=== PATIENT | female | born 1975 | race Caucasian/White ===

== ENCOUNTER 2018-06-11 10:38 | Inpatient (IN) | payer MEDICAID ==
[~2018-06-11] VITALS: Ht 172.7 cm; Wt 108.3 kg
[2018-06-11] MEDS ORDERED: DULO30CA2 PO (10:50)
[2018-06-11] MEDS ORDERED: GABA-531 PO (10:50)
[2018-06-11] MEDS ORDERED: TOPI100T37 PO (10:50)
[2018-06-11] MEDS ORDERED: HYD50 PO (10:50)
[2018-06-11] MEDS ORDERED: MET750 PO (10:50)
[2018-06-11] MEDS ORDERED: ADV100 IH (10:50)
[2018-06-11] MEDS ORDERED: CLON.5 PO (10:50)
[2018-06-11] MEDS ORDERED: BICT1TAB PO (10:50)
[2018-06-11] MEDS ORDERED: ARIP2 PO (10:50)
[2018-06-11] MEDS ORDERED: PRAZ1 PO (10:50)
[2018-06-11 11:36] LABS: AMPHET/METH SCREEN,URINE NEGATIVE (NEGATIVE); BARBITURATE SCREEN, URINE NEGATIVE (NEGATIVE); BENZODIAZEPINES SCREEN,URINE NEGATIVE (NEGATIVE); CANNABINOID SCREEN,URINE NEGATIVE (NEGATIVE); COCAINE SCREEN,URINE NEGATIVE (NEGATIVE); METHADONE SCREEN, URINE NEGATIVE (NEGATIVE); OPIATE SCREEN,URINE NEGATIVE (NEGATIVE); PHENCYCLIDINE SCREEN,URINE NEGATIVE (NEGATIVE)
[2018-06-11 11:41] LABS: BASOPHILS % (AUTO) 0.5 % (0.0-2.0); EOSINOPHILS % (AUTO) 3.2 % (1.0-6.0); HEMATOCRIT 36.6 % (36-46); HEMOGLOBIN 12.2 g/dL (12.0-16.0); LYMPHOCYTES # (AUTO) 1.1 K/uL (1.0-4.8); LYMPHOCYTES % (AUTO) 30.4 % (22.0-44.0); MEAN CORPUSCULAR HEMOGLOBIN 27.2 pg (26.0-34.0); MEAN CORPUSCULAR HGB CONC 33.2 G/dL (31.0-37.0); MEAN CORPUSCULAR VOLUME 82 fL (80-100); MONOCYTES # (AUTO) 0.3 K/uL (0.1-1.0); MONOCYTES % (AUTO) 9.7 % (2.0-9.0); NEUTROPHILS % (AUTO) 56.2 % (40.0-70.0); PLATELET COUNT (AUTO) 149 K/uL (150-450); RED BLOOD CELL COUNT(AUTO) 4.47 MIL/uL (4.00-5.20); RED CELL DISTRIBUTION WIDTH 14.5 % (11.5-14.5)
[2018-06-11 11:57] LABS: ANION GAP 5 mmol/L (8-16); CALCIUM, TOTAL 8.8 mg/dL (8.8-10.5); CARBON DIOXIDE 27 mmol/L (22-29); CHLORIDE 108 mmol/L (98-107); CREATININE 1.03 mg/dL (0.60-1.30); GLOMERULAR FILTR. RATE CALC 58 mL/min (>60); GLUCOSE,RANDOM 106 mg/dL (70-110); POTASSIUM 4.3 mmol/L (3.5-5.1); SODIUM SERUM 140 mmol/L (136-145); UREA NITROGEN, BLOOD 20 mg/dL (7-18)
[2018-06-11 12:08] LABS: ALANINE AMINOTRANSFERASE 47 U/L (12-78); ALBUMIN 3.8 g/dL (3.4-5.0); ALKALINE PHOSPHATASE 114 U/L (46-116); ASPARTATE AMINOTRANSFERASE 37 U/L (15-37); BILIRUBIN,TOTAL 0.8 mg/dL (0.1-1.0); HCG,QUANTITATIVE 1 mIU/mL (0-6); TOTAL PROTEIN, SERUM 7.6 g/dL (6.4-8.2)
[2018-06-11] MEDS ORDERED: IBUPROFEN 400 MG TABLET PO PRN (13:30)
[2018-06-11] MEDS: LORazepam 2 MG TABLET PO PRN ×2 (18:23→23:45)
[2018-06-11 21:24] VITALS: BP 117/75
[2018-06-11 21:58] VITALS: BP 120/74
[2018-06-11] MEDS: ZOLPIDEM TARTRATE 10 MG TABLET PO PRN (23:45)
[2018-06-12 00:01] VITALS: BP 110/78
[2018-06-12 06:18] LABS: BASOPHILS % (AUTO) 0.5 % (0.0-2.0); EOSINOPHILS % (AUTO) 4.2 % (1.0-6.0); HEMATOCRIT 36.6 % (36-46); HEMOGLOBIN 12.4 g/dL (12.0-16.0); LYMPHOCYTES # (AUTO) 1.4 K/uL (1.0-4.8); LYMPHOCYTES % (AUTO) 38.2 % (22.0-44.0); MEAN CORPUSCULAR HEMOGLOBIN 27.6 pg (26.0-34.0); MEAN CORPUSCULAR HGB CONC 33.7 G/dL (31.0-37.0); MEAN CORPUSCULAR VOLUME 82 fL (80-100); MONOCYTES # (AUTO) 0.4 K/uL (0.1-1.0); MONOCYTES % (AUTO) 11.3 % (2.0-9.0); NEUTROPHILS # (AUTO) 1.7 K/uL (1.8-7.7); NEUTROPHILS % (AUTO) 45.8 % (40.0-70.0); PLATELET COUNT (AUTO) 138 K/uL (150-450); RED BLOOD CELL COUNT(AUTO) 4.48 MIL/uL (4.00-5.20); RED CELL DISTRIBUTION WIDTH 14.8 % (11.5-14.5)
[2018-06-12 06:37] LABS: ALANINE AMINOTRANSFERASE 44 U/L (12-78); ALBUMIN 3.5 g/dL (3.4-5.0); ALKALINE PHOSPHATASE 110 U/L (46-116); ANION GAP 7 mmol/L (8-16); ASPARTATE AMINOTRANSFERASE 32 U/L (15-37); BILIRUBIN,TOTAL 0.8 mg/dL (0.1-1.0); CALCIUM, TOTAL 8.6 mg/dL (8.8-10.5); CARBON DIOXIDE 24 mmol/L (22-29); CHLORIDE 109 mmol/L (98-107); CHOL/HDL RATIO 4.6 (3.9-5.7); CHOLESTEROL 147 mg/dL (131-200); CREATININE 0.96 mg/dL (0.60-1.30); GLOMERULAR FILTR. RATE CALC > 60 mL/min (>60); GLUCOSE,RANDOM 115 mg/dL (70-110); HDL CHOLESTEROL 32 mg/dL (40-60); LDL CHOL (CALC.) 86 mg/dL (0-130); POTASSIUM 3.9 mmol/L (3.5-5.1); SODIUM SERUM 140 mmol/L (136-145); THYROID STIMULATING HORMONE 4.77 uIU/mL (0.36-3.74); TOTAL PROTEIN, SERUM 7.2 g/dL (6.4-8.2); TRIGLYCERIDES 147 mg/dL (15-150); UREA NITROGEN, BLOOD 18 mg/dL (7-18)
[2018-06-12 06:39] LABS: HEMOGLOBIN A1C 5.2 % (4.5-6.2)
[2018-06-12] MEDS: FLUTICASONE/SALMETEROL 100 MCG-50 MCG/INH DISKUS INHALER [28] IH SCH ×2 (08:08→20:57)
[2018-06-12] MEDS: TOPIRAMATE 100 MG TABLET PO SCH ×2 (08:08→17:08)
[2018-06-12] MEDS: GABAPENTIN 300 MG CAPSULE PO SCH ×3 (08:09→17:08)
[2018-06-12 10:15] VITALS: BP 115/71
[2018-06-12] MEDS ORDERED: *PATIENT'S OWN MED [ENTER DRUG, DOSE, FREQUENCY IN COMMENTS] CLINICAL ONE (12:45)
[2018-06-12] MEDS ORDERED: MET500 PO (12:53)
[2018-06-12] MEDS: [UNRECOGNIZED DRUG - OTHER] PO SCH (13:08)
[2018-06-12] MEDS: NAPROXEN 500 MG TABLET PO PRN (13:09)
[2018-06-12 13:10] VITALS: BP 119/75
[2018-06-12] MEDS: METHOCARBAMOL 500 MG TABLET PO PRN (13:10)
[2018-06-12] MEDS: DULoxetine HCL 30 MG CAPSULE PO SCH (13:57)
[2018-06-12] MEDS: ARIPiprazole 2 MG TABLET PO SCH (14:52)
[2018-06-12] MEDS: LORazepam 2 MG TABLET PO PRN ×2 (16:21→20:57)
[2018-06-12 18:44] VITALS: BP 116/69
[2018-06-12] MEDS: ZOLPIDEM TARTRATE 10 MG TABLET PO PRN (20:57)
[2018-06-12] MEDS: PRAZOSIN HCL 1 MG CAPSULE PO SCH (20:57)
[2018-06-13] MEDS: LORazepam 2 MG TABLET PO PRN ×2 (03:01→18:12)
[2018-06-13] MEDS: DULoxetine HCL 30 MG CAPSULE PO SCH (09:27)
[2018-06-13] MEDS: FLUTICASONE/SALMETEROL 100 MCG-50 MCG/INH DISKUS INHALER [28] IH SCH ×2 (09:27→21:45)
[2018-06-13] MEDS: ARIPiprazole 2 MG TABLET PO SCH (09:27)
[2018-06-13] MEDS: TOPIRAMATE 100 MG TABLET PO SCH ×2 (09:27→17:04)
[2018-06-13] MEDS: [UNRECOGNIZED DRUG - OTHER] PO SCH (09:28)
[2018-06-13] MEDS: GABAPENTIN 300 MG CAPSULE PO SCH ×3 (09:28→17:04)
[2018-06-13 09:29] VITALS: BP 120/75
[2018-06-13] MEDS: NAPROXEN 500 MG TABLET PO PRN (09:29)
[2018-06-13 10:13] VITALS: BP 108/54
[2018-06-13] MEDS: OLANZapine 5 MG RAPDIS TABLET PO PRN (13:17)
[2018-06-13 18:18] VITALS: BP 108/63
[2018-06-13] MEDS: PRAZOSIN HCL 1 MG CAPSULE PO SCH (21:45)
[2018-06-13] MEDS: ZOLPIDEM TARTRATE 10 MG TABLET PO PRN (22:17)
[2018-06-14] MEDS: LORazepam 2 MG TABLET PO PRN ×3 (03:28→17:41)
[2018-06-14 03:35] VITALS: BP 104/63
[2018-06-14 08:15] VITALS: BP 121/72
[2018-06-14] MEDS: GABAPENTIN 300 MG CAPSULE PO SCH ×3 (09:11→17:37)
[2018-06-14] MEDS: [UNRECOGNIZED DRUG - OTHER] PO SCH (09:11)
[2018-06-14] MEDS: TOPIRAMATE 100 MG TABLET PO SCH ×2 (09:11→17:37)
[2018-06-14] MEDS: DULoxetine HCL 30 MG CAPSULE PO SCH (09:11)
[2018-06-14 09:12] VITALS: BP 135/83
[2018-06-14] MEDS: FLUTICASONE/SALMETEROL 100 MCG-50 MCG/INH DISKUS INHALER [28] IH SCH ×2 (09:12→20:50)
[2018-06-14] MEDS: NAPROXEN 500 MG TABLET PO PRN (09:12)
[2018-06-14] MEDS: ARIPiprazole 2 MG TABLET PO SCH (09:12)
[2018-06-14 13:33] VITALS: BP 120/80
[2018-06-14] MEDS: OLANZapine 5 MG RAPDIS TABLET PO PRN ×2 (13:33→21:12)
[2018-06-14] MEDS: ACETAMINOPHEN 325 MG TABLET PO PRN (13:35)
[2018-06-14 19:59] VITALS: BP 119/66
[2018-06-14] MEDS: PRAZOSIN HCL 1 MG CAPSULE PO SCH (20:50)
[2018-06-14] MEDS: ZOLPIDEM TARTRATE 10 MG TABLET PO PRN (21:13)
[2018-06-15 03:20] VITALS: BP 102/64
[2018-06-15] MEDS: ACETAMINOPHEN 325 MG TABLET PO PRN (03:25)
[2018-06-15] MEDS: FLUTICASONE/SALMETEROL 100 MCG-50 MCG/INH DISKUS INHALER [28] IH SCH ×2 (09:25→21:02)
[2018-06-15] MEDS: [UNRECOGNIZED DRUG - OTHER] PO SCH (09:25)
[2018-06-15] MEDS: DULoxetine HCL 30 MG CAPSULE PO SCH (09:25)
[2018-06-15] MEDS: GABAPENTIN 300 MG CAPSULE PO SCH ×3 (09:25→16:23)
[2018-06-15] MEDS: ARIPiprazole 2 MG TABLET PO SCH (09:25)
[2018-06-15] MEDS: TOPIRAMATE 100 MG TABLET PO SCH ×2 (09:25→16:26)
[2018-06-15 09:36] VITALS: BP 110/67
[2018-06-15] MEDS: NAPROXEN 500 MG TABLET PO PRN (09:45)
[2018-06-15] MEDS: METHOCARBAMOL 500 MG TABLET PO PRN (11:09)
[2018-06-15] MEDS: LORazepam 2 MG TABLET PO PRN (12:08)
[2018-06-15 16:55] VITALS: BP 138/86
[2018-06-15] MEDS: OLANZapine 5 MG RAPDIS TABLET PO PRN (19:10)
[2018-06-15] MEDS: PRAZOSIN HCL 1 MG CAPSULE PO SCH (21:02)
[2018-06-15] MEDS: ZOLPIDEM TARTRATE 10 MG TABLET PO PRN (21:06)
[2018-06-16 02:42] VITALS: BP 97/60
[2018-06-16] MEDS: OLANZapine 5 MG RAPDIS TABLET PO PRN (02:43)
[2018-06-16] MEDS: NAPROXEN 500 MG TABLET PO PRN ×2 (02:44→18:47)
[2018-06-16 04:50] VITALS: BP 116/93
[2018-06-16] MEDS: LORazepam 2 MG TABLET PO PRN ×2 (04:55→19:52)
[2018-06-16] MEDS: [UNRECOGNIZED DRUG - OTHER] PO SCH (09:09)
[2018-06-16] MEDS: DULoxetine HCL 30 MG CAPSULE PO SCH (09:09)
[2018-06-16] MEDS: ARIPiprazole 5 MG TABLET PO SCH (09:09)
[2018-06-16] MEDS: FLUTICASONE/SALMETEROL 100 MCG-50 MCG/INH DISKUS INHALER [28] IH SCH ×2 (09:09→20:13)
[2018-06-16] MEDS: GABAPENTIN 300 MG CAPSULE PO SCH ×3 (09:09→16:50)
[2018-06-16 09:10] VITALS: BP 132/92
[2018-06-16] MEDS: TOPIRAMATE 100 MG TABLET PO SCH ×2 (09:17→16:51)
[2018-06-16 16:00] LABS: BASOPHILS % (AUTO) 0.5 % (0.0-2.0); EOSINOPHILS % (AUTO) 2.7 % (1.0-6.0); HEMATOCRIT 36.3 % (36-46); HEMOGLOBIN 11.9 g/dL (12.0-16.0); LYMPHOCYTES # (AUTO) 1.1 K/uL (1.0-4.8); LYMPHOCYTES % (AUTO) 26.4 % (22.0-44.0); MEAN CORPUSCULAR HGB CONC 32.8 G/dL (31.0-37.0); MEAN CORPUSCULAR VOLUME 83 fL (80-100); MONOCYTES # (AUTO) 0.3 K/uL (0.1-1.0); MONOCYTES % (AUTO) 7.6 % (2.0-9.0); NEUTROPHILS # (AUTO) 2.7 K/uL (1.8-7.7); NEUTROPHILS % (AUTO) 62.8 % (40.0-70.0); PLATELET COUNT (AUTO) 156 K/uL (150-450); RED BLOOD CELL COUNT(AUTO) 4.39 MIL/uL (4.00-5.20); RED CELL DISTRIBUTION WIDTH 15.1 % (11.5-14.5)
[2018-06-16] MEDS: PRAZOSIN HCL 1 MG CAPSULE PO SCH (20:13)
[2018-06-16] MEDS: ACETAMINOPHEN 325 MG TABLET PO PRN (21:37)
[2018-06-16] MEDS: ZOLPIDEM TARTRATE 10 MG TABLET PO PRN (21:37)
[2018-06-17] MEDS: OLANZapine 5 MG RAPDIS TABLET PO PRN (03:29)
[2018-06-17] MEDS: ARIPiprazole 5 MG TABLET PO SCH (08:56)
[2018-06-17] MEDS: DULoxetine HCL 30 MG CAPSULE PO SCH (08:56)
[2018-06-17] MEDS: FLUTICASONE/SALMETEROL 100 MCG-50 MCG/INH DISKUS INHALER [28] IH SCH ×2 (08:57→20:16)
[2018-06-17] MEDS: [UNRECOGNIZED DRUG - OTHER] PO SCH (08:57)
[2018-06-17] MEDS: GABAPENTIN 300 MG CAPSULE PO SCH ×3 (08:57→16:32)
[2018-06-17] MEDS: TOPIRAMATE 100 MG TABLET PO SCH ×2 (08:57→16:32)
[2018-06-17] MEDS: NAPROXEN 500 MG TABLET PO PRN ×2 (08:59→16:34)
[2018-06-17 09:00] VITALS: BP 126/80
[2018-06-17 13:00] VITALS: BP 118/78
[2018-06-17 16:34] VITALS: BP 120/80
[2018-06-17 17:00] VITALS: BP 128/74
[2018-06-17 17:34] VITALS: BP 133/86
[2018-06-17] MEDS: LORazepam 2 MG TABLET PO PRN (18:48)
[2018-06-17] MEDS: PRAZOSIN HCL 1 MG CAPSULE PO SCH (20:16)
[2018-06-17] MEDS: ZOLPIDEM TARTRATE 10 MG TABLET PO PRN (20:17)
[2018-06-18] MEDS: OLANZapine 5 MG RAPDIS TABLET PO PRN (02:42)
[2018-06-18 03:38] VITALS: BP 120/76
[2018-06-18] MEDS: ACETAMINOPHEN 325 MG TABLET PO PRN (03:38)
[2018-06-18] MEDS: LORazepam 2 MG TABLET PO PRN (04:41)
[2018-06-18 09:00] VITALS: BP 130/62
[2018-06-18] MEDS: FLUTICASONE/SALMETEROL 100 MCG-50 MCG/INH DISKUS INHALER [28] IH SCH (10:07)
[2018-06-18] MEDS: ARIPiprazole 5 MG TABLET PO SCH (10:08)
[2018-06-18] MEDS: TOPIRAMATE 100 MG TABLET PO SCH ×2 (10:08→16:35)
[2018-06-18] MEDS: DULoxetine HCL 30 MG CAPSULE PO SCH (10:08)
[2018-06-18] MEDS: GABAPENTIN 300 MG CAPSULE PO SCH ×3 (10:08→16:35)
[2018-06-18] MEDS: [UNRECOGNIZED DRUG - OTHER] PO SCH (10:08)
[2018-06-18] MEDS ORDERED: NAPR-58 PO (16:42)
[2018-06-18] MEDS ORDERED: ARIP5TAB8 PO (16:58)
== END 2018-06-18 19:15 | disposition home or self-care (01) | DRG 751 ==
LOC: EMS 10:40 → 3EI 20:19
PROVIDERS: ADMIT Psychiatry & Neurology Psychiatry; ATTEND Psychiatry & Neurology Psychiatry
DX: F33.2 Major depressive disorder, recurrent severe without psychotic features (principal); R45.851 Suicidal ideations; G62.9 Polyneuropathy, unspecified; D72.819 Decreased white blood cell count, unspecified; F41.9 Anxiety disorder, unspecified; M25.562 Pain in left knee; F43.12 Post-traumatic stress disorder, chronic; M54.9 Dorsalgia, unspecified; G89.29 Other chronic pain; J44.9 Chronic obstructive pulmonary disease, unspecified; M19.90 Unspecified osteoarthritis, unspecified site; Z59.0 Homelessness; Z87.820 Personal history of traumatic brain injury; Z91.5 Personal history of self-harm; Z91.011 Allergy to milk products; Z79.899 Other long term (current) drug therapy; Z90.49 Acquired absence of other specified parts of digestive tract
CPT/HCPCS: 83036; 84443; 86361; 87081; 99285; G0480; J3535

== ENCOUNTER 2019-04-04 22:48 | Emergency (ER) | payer MEDICAID, OTHER ==
[~2019-04-04] VITALS: Ht 172.7 cm; Wt 106.8 kg
[~2019-04-04 22:48] MED LIST: ADV100 IH; ARIP5TAB8 PO; BICT1TAB PO; DULO30CA2 PO; GABA-531 PO; NAPR-1025 PO; PRAZ1 PO; TOPI100T37 PO
[2019-04-05] MEDS ORDERED: MELO-107 PO (00:14)
[2019-04-05] MEDS ORDERED: QUET25TA PO (00:14)
[2019-04-05] MEDS ORDERED: METHOCARBAMOL 500 MG TABLET PO ONE (02:45)
[2019-04-05] MEDS ORDERED: LIDOCAINE 5% TRANSDERMAL PATCH TD ONE (02:45)
[2019-04-05] MEDS ORDERED: KETOROLAC TROMETHAMINE 30 MG/ML VIAL IM ONE (02:45)
[2019-04-05 05:30] VITALS: BP 119/62
== END 2019-04-05 05:50 | disposition home or self-care (01) ==
LOC: EMS 22:50
DX: M54.9 Dorsalgia, unspecified (principal); F41.9 Anxiety disorder, unspecified; F32.9 Major depressive disorder, single episode, unspecified; Z88.6 Allergy status to analgesic agent; Z88.8 Allergy status to other drugs, medicaments and biological substances; Z91.011 Allergy to milk products; Z79.899 Other long term (current) drug therapy
CPT/HCPCS: 72100; 81002; 96372; 99283; J1885

== ENCOUNTER 2019-06-17 13:25 | Inpatient (IN) | payer MEDICAID ==
[~2019-06-17] VITALS: Ht 172.7 cm; Wt 101.3 kg
[~2019-06-17 13:25] MED LIST changes: +MELO-107 PO; -PRAZ1 PO; +QUET25TA PO
[2019-06-17] MEDS ORDERED: MUPI1OIN5 TP (14:04)
[2019-06-17] MEDS ORDERED: KETO.5OS OU (14:04)
[2019-06-17] MEDS ORDERED: METH500T7 PO (14:04)
[2019-06-17] MEDS ORDERED: PRAZ2 PO (14:04)
[2019-06-17] MEDS ORDERED: HYD50 PO (14:04)
[2019-06-17] MEDS ORDERED: ALBU8HFA IH (14:04)
[2019-06-17] MEDS ORDERED: ONDANSETRON HCL 4 MG TABLET PO ONE (14:45)
[2019-06-17] MEDS ORDERED: ACETAMINOPHEN 500 MG TABLET PO ONE (14:45)
[2019-06-17 14:55] LABS: BASOPHILS % (AUTO) 0.4 % (0.0-2.0); EOSINOPHILS % (AUTO) 1.8 % (1.0-6.0); HEMATOCRIT 36.1 % (36-46); HEMOGLOBIN 11.9 g/dL (12.0-16.0); LYMPHOCYTES # (AUTO) 1.2 K/uL (1.0-4.8); MEAN CORPUSCULAR HEMOGLOBIN 27.5 pg (26.0-34.0); MEAN CORPUSCULAR HGB CONC 32.9 G/dL (31.0-37.0); MEAN CORPUSCULAR VOLUME 84 fL (80-100); MONOCYTES # (AUTO) 0.4 K/uL (0.1-1.0); MONOCYTES % (AUTO) 8.4 % (2.0-9.0); NEUTROPHILS # (AUTO) 3.4 K/uL (1.8-7.7); NEUTROPHILS % (AUTO) 65.4 % (40.0-70.0); PLATELET COUNT (AUTO) 172 K/uL (150-450); RED BLOOD CELL COUNT(AUTO) 4.32 MIL/uL (4.00-5.20); RED CELL DISTRIBUTION WIDTH 14.6 % (11.5-14.5)
[2019-06-17 15:18] LABS: ALANINE AMINOTRANSFERASE 19 U/L (12-78); ALKALINE PHOSPHATASE 111 U/L (46-116); ANION GAP 12 mmol/L (8-16); ASPARTATE AMINOTRANSFERASE 20 U/L (15-37); BILIRUBIN,TOTAL 1.1 mg/dL (0.1-1.0); CARBON DIOXIDE 24 mmol/L (22-29); CHLORIDE 105 mmol/L (98-107); CREATININE 1.23 mg/dL (0.60-1.30); GLOMERULAR FILTR. RATE CALC 47 mL/min (>60); GLUCOSE,RANDOM 95 mg/dL (70-110); HCG,QUANTITATIVE 1 mIU/mL (0-6); LIPASE 48 U/L (73-393); POTASSIUM 3.1 mmol/L (3.5-5.1); SODIUM SERUM 141 mmol/L (136-145); TOTAL PROTEIN, SERUM 7.5 g/dL (6.4-8.2)
[2019-06-17 15:23] LABS: UREA NITROGEN, BLOOD 20 mg/dL (7-18)
[2019-06-17] MEDS ORDERED: POTASSIUM CHLORIDE 20 MEQ ER TABLET PO ONE (16:00)
[2019-06-17 18:55] LABS: APPEARANCE,URINE CLEAR (CLEAR); BILIRUBIN,URINE NEGATIVE (NEGATIVE); GLUCOSE, URINE (UA) NEGATIVE (NEGATIVE); KETONES,URINE NEGATIVE (NEGATIVE); LEUKOCYTE ESTERASE ,URINE NEGATIVE (NEGATIVE); NITRATE,URINE NEGATIVE (NEGATIVE); OCCULT BLOOD,URINE NEGATIVE (NEGATIVE); PH,URINE 5.5 (5.0-8.0); PROTEIN,URINE NEGATIVE (NEGATIVE); UROBILINOGEN,URINE 0.2 mg/dL (<=1.0)
[2019-06-17 19:00] LABS: AMPHET/METH SCREEN,URINE POSITIVE (NEGATIVE); BARBITURATE SCREEN, URINE NEGATIVE (NEGATIVE); BENZODIAZEPINES SCREEN,URINE NEGATIVE (NEGATIVE); CANNABINOID SCREEN,URINE NEGATIVE (NEGATIVE); COCAINE SCREEN,URINE NEGATIVE (NEGATIVE); METHADONE SCREEN, URINE NEGATIVE (NEGATIVE); OPIATE SCREEN,URINE NEGATIVE (NEGATIVE); PHENCYCLIDINE SCREEN,URINE NEGATIVE (NEGATIVE)
[2019-06-17 19:18] LABS: BACTERIA,URINE Rare /HPF (None Seen); RBC,URINE None Seen /HPF (0-2); SQUAMOUS EPITHELIAL CELL,UR Few /LPF (None Seen); WBC,URINE 0-2 /HPF (0-5)
[2019-06-17 19:19] LABS: CALCIUM OXALATE CRYSTALS,UR Few /LPF (None Seen)
[2019-06-17 20:33] VITALS: BP 119/67
[2019-06-17] MEDS ORDERED: PETROLATUM,WHITE 28 GM JELLY TP PRN (20:45)
[2019-06-17] MEDS ORDERED: ALBUTEROL SULFATE HFA 90 MCG/PUFF 8 GM INHALER IH PRN (20:45)
[2019-06-17] MEDS ORDERED: ONDANSETRON HCL 4 MG TABLET PO PRN (20:45)
[2019-06-17] MEDS ORDERED: MAGNESIUM HYDROXIDE SUSPENSION 30 ML UDCUP PO PRN (20:45)
[2019-06-17] MEDS ORDERED: GuaiFENesin/D-METHORPHAN [SUGAR-FREE] 200-20MG/10 ML SYRUP UDCUP PO PRN (20:45)
[2019-06-17] MEDS ORDERED: DOCUSATE SODIUM 100 MG CAPSULE PO PRN (20:45)
[2019-06-17] MEDS ORDERED: MAG HYDROX/AL HYDROX/SIMETH ES 30 ML SUSPENSION UDCUP PO PRN (20:45)
[2019-06-17] MEDS ORDERED: LOPERAMIDE HCL 2 MG CAPSULE PO PRN (20:45)
[2019-06-17] MEDS ORDERED: CloNIDine HCL 0.1 MG TABLET PO PRN (20:45)
[2019-06-17] MEDS ORDERED: NICOTINE 14 MG/24 HOUR PATCH TD PRN (20:45)
[2019-06-17] MEDS: ZOLPIDEM TARTRATE 10 MG TABLET PO PRN (22:41)
[2019-06-17 22:49] VITALS: BP 124/76
[2019-06-17] MEDS: ACETAMINOPHEN 325 MG TABLET PO PRN (22:57)
[2019-06-18 00:24] VITALS: BP 119/67
[2019-06-18] MEDS: MELOXICAM 7.5 MG TABLET PO SCH (06:46)
[2019-06-18 08:56] VITALS: BP 119/67
[2019-06-18] MEDS: FLUTICASONE/VILANTEROL 200-25 MCG/INH INHALER [14] IH SCH (09:42)
[2019-06-18] MEDS: MUPIROCIN CALCIUM 2% 15 GM CREAM TP SCH ×2 (09:42→16:14)
[2019-06-18] MEDS ORDERED: DULO60CA44 PO (11:09)
[2019-06-18] MEDS ORDERED: FLUT1AER4 IH (11:10)
[2019-06-18] MEDS: LORazepam 0.5 MG TABLET PO SCH (17:07)
[2019-06-18] MEDS: ZOLPIDEM TARTRATE 10 MG TABLET PO PRN (20:39)
[2019-06-18] MEDS: PRAZOSIN HCL 2 MG CAPSULE PO SCH (20:40)
[2019-06-18] MEDS ORDERED: QUEtiapine FUMARATE 50 MG ER TABLET PO SCH (21:00)
[2019-06-18 21:17] VITALS: BP 119/71
[2019-06-19] MEDS: LORazepam 0.5 MG TABLET PO SCH ×5 (00:16→23:53)
[2019-06-19 00:17] VITALS: BP 120/60
[2019-06-19] MEDS: MELOXICAM 7.5 MG TABLET PO SCH (06:56)
[2019-06-19] MEDS: MUPIROCIN CALCIUM 2% 15 GM CREAM TP SCH ×2 (09:00→17:00)
[2019-06-19 09:07] VITALS: BP 117/74
[2019-06-19] MEDS: DULoxetine HCL 60 MG CAPSULE PO SCH (09:28)
[2019-06-19] MEDS: FLUTICASONE/VILANTEROL 200-25 MCG/INH INHALER [14] IH SCH (09:28)
[2019-06-19] MEDS: ACETAMINOPHEN 325 MG TABLET PO PRN (13:39)
[2019-06-19 18:47] VITALS: BP 129/76
[2019-06-19] MEDS: ZOLPIDEM TARTRATE 10 MG TABLET PO PRN (20:19)
[2019-06-19] MEDS: PRAZOSIN HCL 2 MG CAPSULE PO SCH (20:19)
[2019-06-19] MEDS ORDERED: QUEtiapine FUMARATE 50 MG ER TABLET PO SCH (21:00)
[2019-06-20 05:54] VITALS: BP 121/71
[2019-06-20] MEDS: LORazepam 0.5 MG TABLET PO SCH ×4 (05:59→23:56)
[2019-06-20] MEDS: MELOXICAM 7.5 MG TABLET PO SCH (06:57)
[2019-06-20 08:00] VITALS: BP 100/63
[2019-06-20] MEDS: FLUTICASONE/VILANTEROL 200-25 MCG/INH INHALER [14] IH SCH (09:14)
[2019-06-20] MEDS: DULoxetine HCL 60 MG CAPSULE PO SCH (09:14)
[2019-06-20] MEDS: MUPIROCIN CALCIUM 2% 15 GM CREAM TP SCH ×2 (09:18→17:14)
[2019-06-20] MEDS: LORazepam 0.5 MG TABLET PO PRN (09:38)
[2019-06-20] MEDS: GABAPENTIN 300 MG CAPSULE PO SCH ×2 (12:25→17:14)
[2019-06-20 14:22] VITALS: BP 110/65
[2019-06-20] MEDS: ACETAMINOPHEN 325 MG TABLET PO PRN (14:22)
[2019-06-20] MEDS: QUEtiapine FUMARATE 300 MG ER TABLET PO SCH (22:05)
[2019-06-20] MEDS: PRAZOSIN HCL 2 MG CAPSULE PO SCH (22:05)
[2019-06-20] MEDS: ZOLPIDEM TARTRATE 10 MG TABLET PO PRN (22:09)
[2019-06-21] MEDS: LORazepam 0.5 MG TABLET PO SCH ×3 (06:13→17:12)
[2019-06-21] MEDS: MELOXICAM 7.5 MG TABLET PO SCH (06:51)
[2019-06-21] MEDS: MUPIROCIN CALCIUM 2% 15 GM CREAM TP SCH ×2 (09:20→16:24)
[2019-06-21] MEDS: FLUTICASONE/VILANTEROL 200-25 MCG/INH INHALER [14] IH SCH (09:20)
[2019-06-21] MEDS: GABAPENTIN 300 MG CAPSULE PO SCH ×3 (09:21→16:23)
[2019-06-21] MEDS: DULoxetine HCL 60 MG CAPSULE PO SCH (09:21)
[2019-06-21] MEDS: ACETAMINOPHEN 325 MG TABLET PO PRN (09:24)
[2019-06-21] MEDS: LORazepam 0.5 MG TABLET PO PRN ×2 (09:25→20:22)
[2019-06-21 16:32] VITALS: BP 110/63
[2019-06-21] MEDS: BICTEGRAV/EMTRICIT/TENOFOV ALA 50-200-25 MG TABLET PO SCH (17:30)
[2019-06-21] MEDS: QUEtiapine FUMARATE 300 MG ER TABLET PO SCH (20:23)
[2019-06-21] MEDS: PRAZOSIN HCL 2 MG CAPSULE PO SCH (22:00)
[2019-06-22] MEDS: LORazepam 0.5 MG TABLET PO SCH ×2 (00:18→06:43)
[2019-06-22 05:21] VITALS: BP 122/71
[2019-06-22] MEDS: MELOXICAM 7.5 MG TABLET PO SCH (06:43)
[2019-06-22] MEDS: FLUTICASONE/VILANTEROL 200-25 MCG/INH INHALER [14] IH SCH (10:18)
[2019-06-22] MEDS: LORazepam 0.5 MG TABLET PO PRN ×2 (10:19→16:51)
[2019-06-22] MEDS: DULoxetine HCL 60 MG CAPSULE PO SCH (10:19)
[2019-06-22] MEDS: BICTEGRAV/EMTRICIT/TENOFOV ALA 50-200-25 MG TABLET PO SCH (10:19)
[2019-06-22] MEDS: GABAPENTIN 300 MG CAPSULE PO SCH ×3 (10:20→16:49)
[2019-06-22] MEDS: MUPIROCIN CALCIUM 2% 15 GM CREAM TP SCH ×2 (10:20→16:52)
[2019-06-22 10:22] VITALS: BP 110/82
[2019-06-22] MEDS: ACETAMINOPHEN 325 MG TABLET PO PRN (12:50)
[2019-06-22] MEDS ORDERED: INFLUENZA VIRUS VACCINE QVS 2019-20 (3YR+)/PF 60 MCG/0.5 ML SYRINGE IM ONE (14:00)
[2019-06-22 18:47] VITALS: BP 135/77
[2019-06-22] MEDS: ZOLPIDEM TARTRATE 10 MG TABLET PO PRN (20:58)
[2019-06-22] MEDS: PRAZOSIN HCL 2 MG CAPSULE PO SCH (21:02)
[2019-06-22] MEDS: QUEtiapine FUMARATE 300 MG ER TABLET PO SCH (21:02)
[2019-06-23 03:17] VITALS: BP 107/69
[2019-06-23] MEDS: LORazepam 0.5 MG TABLET PO PRN ×2 (03:22→09:24)
[2019-06-23] MEDS: MELOXICAM 7.5 MG TABLET PO SCH (06:47)
[2019-06-23 08:00] VITALS: BP 120/64
[2019-06-23] MEDS: FLUTICASONE/VILANTEROL 200-25 MCG/INH INHALER [14] IH SCH (09:12)
[2019-06-23] MEDS: MUPIROCIN CALCIUM 2% 15 GM CREAM TP SCH (09:13)
[2019-06-23] MEDS: DULoxetine HCL 60 MG CAPSULE PO SCH (09:13)
[2019-06-23] MEDS: GABAPENTIN 300 MG CAPSULE PO SCH ×2 (09:15→13:22)
[2019-06-23] MEDS: BICTEGRAV/EMTRICIT/TENOFOV ALA 50-200-25 MG TABLET PO SCH (09:15)
[2019-06-23] MEDS ORDERED: HydrOXYzine PAMOATE 25 MG CAPSULE PO PRN (10:45)
[2019-06-23] MEDS ORDERED: QUEtiapine FUMARATE 300 MG ER TABLET PO SCH (21:00)
== END 2019-06-23 15:30 | disposition home or self-care (01) | DRG 751 ==
LOC: EMS 13:27 → 3EI 18:17
PROVIDERS: ADMIT Psychiatry & Neurology Psychiatry; ATTEND Psychiatry & Neurology Psychiatry
DX: F33.3 Major depressive disorder, recurrent, severe with psychotic symptoms (principal); B20 Human immunodeficiency virus [HIV] disease; R45.851 Suicidal ideations; D64.9 Anemia, unspecified; E87.6 Hypokalemia; F43.10 Post-traumatic stress disorder, unspecified; F90.9 Attention-deficit hyperactivity disorder, unspecified type; F15.10 Other stimulant abuse, uncomplicated; F60.3 Borderline personality disorder; G62.9 Polyneuropathy, unspecified; J45.909 Unspecified asthma, uncomplicated; M19.90 Unspecified osteoarthritis, unspecified site; Z79.899 Other long term (current) drug therapy; Z91.5 Personal history of self-harm; Z28.21 Immunization not carried out because of patient refusal; Z88.8 Allergy status to other drugs, medicaments and biological substances; Z91.011 Allergy to milk products; Z90.49 Acquired absence of other specified parts of digestive tract; Z71.51 Drug abuse counseling and surveillance of drug abuser; Z59.0 Homelessness
CPT/HCPCS: 84132; G0480; Q0162